=== PATIENT | female | born 1975 | race African-American/Black ===

== ENCOUNTER 2021-03-13 14:58 | Inpatient (IN) | payer MEDICAID, SELFPAY ==
[~2021-03-13] VITALS: Ht 167.6 cm; Wt 60.8 kg
[2021-03-13 15:02] VITALS: BP 104/65
--- NOTE | 2021-03-13 15:07 | NUR ---
45 y/o F BIBA for gen weakness x1 day and dehydration. Pt was in [place] for the same symptoms and has been walking for a few hours with a large heavy jacket on. Denies CP, Denies N/V/D. Has not rested since her D/C PmHx: Denies Allergies: Denies Denies home meds
[2021-03-13] MEDS ORDERED: NACL 0.9% 1,000 ML IV ONE (15:20)
--- NOTE | 2021-03-13 15:30 | NUR ---
Urine collected and processed per orders
--- NOTE | 2021-03-13 15:36 | NUR ---
Marvin Rojas at bedside performing EKG
[2021-03-13 15:39] LABS: BASOPHILS # (AUTO) 0.1 K/uL (0.00-0.22); HEMATOCRIT 23.2 % (36-48); WHITE BLOOD COUNT (AUTO) 7.3 K/uL (4.8-10.8)
[2021-03-13 15:44] LABS: APPEARANCE,URINE CLEAR (CLEAR); BILIRUBIN,URINE 2+ (NEGATIVE); BLOOD, URINE 3+ (NEGATIVE); COLOR,URINE YELLOW (YELLOW); LEUKOCYTE ESTERASE ,URINE NEGATIVE (NEGATIVE); NITRITE, URINE NEGATIVE (NEGATIVE); UGLUCOSE NEGATIVE (NEGATIVE)
[2021-03-13 15:51] LABS: BASOPHILS % (AUTO) 0.9 % (0.0-2.0); EOSINOPHILS % (AUTO) 0.4 % (0.0-4.0); LYMPHOCYTES # (AUTO) 1.4 K/uL (2.5-16.5); LYMPHOCYTES % (AUTO) 19.4 % (20.5-51.1); MEAN CORPUSCULAR HEMOGLOBIN 19 pg (27-31); MEAN CORPUSCULAR HGB CONC 30 g/dL (33-37); MEAN CORPUSCULAR VOLUME 62.4 fL (80-94); MONOCYTES % (AUTO) 14.2 % (1.7-9.3); NEUTROPHILS # (AUTO) 4.7 K/uL (1.8-7.7); NEUTROPHILS % (AUTO) 65.1 % (42.2-75.2); PLATELET COUNT (AUTO) 631 K/uL (140-450); RED BLOOD CELL COUNT(AUTO) 3.72 MIL/uL (4.20-5.40); RED CELL DISTRIBUTION WIDTH 19.3 % (11.6-13.7)
[2021-03-13 15:56] LABS: RBC,URINE 0-5 /HPF (0-5); WBC,URINE 0-5 /HPF (0-5)
[2021-03-13 16:00] LABS: ANION GAP 17.7 (8-16); CARBON DIOXIDE 23.2 mmol/L (21-32); CREATININE 0.8 mg/dL (0.6-1.3)
[2021-03-13 16:02] LABS: POTASSIUM 2.9 mmol/L (3.5-5.1)
[2021-03-13] MEDS ORDERED: POTASSIUM CHLORIDE 10 MEQ TABER PO ONE (16:05)
[2021-03-13] MEDS ORDERED: POTASSIUM CHLORIDE 20% 40 MEQ/15 ML UDC PO ONE (16:10)
--- NOTE | 2021-03-13 16:18 | NUR ---
Female Gate Keeper accompanied female patient for Rectal Exam. For ERMD
--- NOTE | 2021-03-13 16:19 | NUR ---
Radiology at bedside doing XRay
--- NOTE | 2021-03-13 17:05 | NUR ---
Per Dr. Felder, would like pt to be admitted to Tele Floor and given 1 Unit PRBC
[2021-03-13] MEDS ORDERED: POTASSIUM CHLORIDE 10 MEQ TABER PO PRN (17:35)
[2021-03-13] MEDS ORDERED: DEXT 5% /NACL 0.9% 1,000 ML IV SCH (17:35)
[2021-03-13] MEDS ORDERED: ZOLPIDEM 5 MG TAB PO PRN (17:35)
[2021-03-13] MEDS ORDERED: ACETAMINOPHEN 325 MG TAB PO PRN (17:35)
[2021-03-13] MEDS ORDERED: ONDANSETRON 4 MG/2 ML VIAL IM/IVP PRN (17:35)
[2021-03-13] MEDS ORDERED: guaiFENesin DM 200/20 MG-10 ML 10 ML UDC PO PRN (17:35)
[2021-03-13] MEDS ORDERED: HYDROcodone/APAP 7.5/325 MG 1 TAB PO PRN (17:35)
[2021-03-13] MEDS ORDERED: DOCUSATE SODIUM 100 MG GELCAP PO PRN (17:35)
[2021-03-13 17:37] LABS: BARBITURATE, URINE NEGATIVE ng/ml (NEG <=200); BENZODIAZEPINE, URINE NEGATIVE ng/mL (NEG <=200); CANNABINOID, URINE NEGATIVE ng/mL (NEG <=50); COCAINE, URINE NEGATIVE ng/mL (NEG <=300); OPIATE, URINE NEGATIVE ng/mL (NEG <=2000); PHENCYCLIDINE SCREEN,URINE NEGATIVE ng/mL (NEG <=25)
--- NOTE | 2021-03-13 17:52 | NUR ---
COVID TEST TAKEN AND GIVEN TO LEARNING TECHNOLOGIST
[2021-03-13 18:14] LABS: CHOL/HDL RATIO 3.4 (1-4.5); FREE T4 (FREE THYROXINE) 1.26 ng/dL (0.76-1.46); MAGNESIUM 1.7 mg/dL (1.8-2.4); PHOSPHORUS 3.5 mg/dL (2.5-4.9); THYROID STIMULATING HORMONE 1.29 uIU/mL (0.34-3.74)
[2021-03-13 18:41] LABS: PROTHROMBIN TIME 10.9 secs (10.8-13.4)
[2021-03-13] MEDS ORDERED: SODIUM FERRIC GLUCONATE 125 MG in NACL 0.9% 100 ML IV SCH (19:00)
--- NOTE | 2021-03-13 19:27 | NUR ---
REPORT RECEIVED FROM ABDIEL MORALES FOR CONTINUITY OF PATIENT CARE AT THIS TIME.
--- NOTE | 2021-03-13 19:29 | NUR ---
Pt report given to Aruna. Transfer of care at this time.
[2021-03-13] MEDS ORDERED: POTASSIUM CHLORIDE 40 MEQ, LIDOCAINE MPF 1% 25 MG in NACL 0.9% 250 ML IV SCH (20:00)
--- NOTE | 2021-03-13 20:00 | NUR ---
PATIENT SITTING IN BED LOCKED IN LOWEST POSITION W X1 SIDERAIL UP. PATIENT DENIES ANY PAIN, DENIES ANY MORE WEAKNESS. PATIENT DENIES ANY DIZZYNESS, NAUSEA OR OTHER SYMPTOMS. PATIENT AOX4 W VSS.
--- NOTE | 2021-03-13 20:05 | NUR ---
5%-0.9% IVF INFUSION PAUSED W 785 ML VTBI. TO INITIATE POTASSIUM CHLORIDE 40MEQ.
--- NOTE | 2021-03-13 20:15 | NUR ---
Pt report given to ABDIEL WINSLOW. Transfer of care at this time.
--- NOTE | 2021-03-13 20:25 | NUR ---
Patient will be admitted to care of . Admited to TELEMETRY. Will go to room 106-B. Belongings list completed. Report to ABDIEL WINSLOW.
--- NOTE | 2021-03-13 20:30 | NUR ---
RECEIVED REPORT FROM ER, PT UP TO ROOM VIA DORIS SHE IS AOX4 ON ROOM AIR, SKIN INTACT AND ABLE TO AMBULATE TO THE BED. PT REFUSED TO WEAR THE GOWN. SHE WAS PLACED ON TELEMONITORING SHE HAS A 18G IN RAC. V/S FOLLOWS: T 97.7 P 92 R 20 B/P 102/63. ALL UNIVERSAL FALLS PRECAUTIONS IN PLACE.
[2021-03-13 21:00] VITALS: BP 102/63
--- NOTE | 2021-03-13 21:00 | NUR ---
PT WAS FOUND GETTING HER BELONGINGS TOGETHER AND SHE ALSO PULLED OUT IV SITE. PT TOLE STAFF SHE WAS DISCHARGED. STAFF CORRECTED HER AND REMINDED HER SHE HAS BEEN ADMITTED HERE AND HAS 1 UNIT OF BLOOD ORDERED. PT VERBALIZED UNDERSTANDING.
--- NOTE | 2021-03-13 22:30 | NUR ---
RECEIVED CALL FROM LAB THAT UNIT OF PACKED RED BLOOD CELLS ARE READY. PRE TRANSFUSION V/S FOLLOWS: T 98 P 86 R 20 B/P 1006/1 02 98% ON ROOM AIR. NEW IV SITE PROVIDED TO PT ON RIGHT HAND 22 GUAGE. ALL ORDERED PRECAUTIONS IN PLACE.
--- NOTE | 2021-03-13 23:15 | NUR ---
BLOOD TRANSFUSION STARTED NO ADVERSE REACTION NOTED. V/S FOLLOWS: T 98 P 85 R 20 B/P 94/61 02 99% ON ROOM AIR.
[2021-03-14] VITALS: BP 98/67
--- NOTE | 2021-03-14 00:15 | NUR ---
TRANSFUSION IN PROGRESS; NO ADVERSE REACTION NOTED, V/S FOLLOWS: T 98.0 P 77 R 20 B/P 98/67 02 99% ON ROOM AIR. PT ASKED TO BE DISCONNECTED AND "TAKE A BREAK" PT INFORMED THAT THERE IS ONLY UP TO 4 HRS TO COMPLETED THE TRANSFUSION. PT WAS DISCONNECTED FROM VITAL SIGNS MACHINE AND REMINDED THAT SHE MAY USE THE BATHROOM BUT TO TAKE HER IV POLE ZAND THAT WE CANNOT STOP THE TRANSFUSION UNLESS SHE HAS AN ADVERSE EFFECT. PT VERBALIZED UNDERSTANDING.
--- NOTE | 2021-03-14 02:15 | NUR ---
PT WAS NOTED TO BE OFF TELEMETRY MONITORING. CHECKED AND PT, SHE HAD PULLED OUT IV SITE AND LEFT. MOST OF THE BAG OF BLOOD (ABOUT 95%) WAS COMPLETED NO ADVERSE REACTION NOTED. SPOKE WITH FRONT LOB[facility] AND SECURITY TO ASK ABOUT IF THEY COULD FIND HER OR IF SHE WAS ON FILM LEAVING. PT WAS SEEN ON FILM LEAVING BUILDING ABOUT 0210. PT TOOK TELEL BOX WITH HER AND LEFT SOME BELONGINGS IN THE CLOSET.
--- NOTE | 2021-03-14 03:40 | NUR ---
CARIE BONILLA CALLED TO UNIT TO SAY THAT PT WALKED BACK IN THE BUILDING. PT WAS ESCORTED BACK , SHE HAD TELE BOX WITH HER. PT SEEM ALERT AND AWARE AND WALKED WITH NURSING STAFF BACK UP TO UNIT TO ROOM 106 BED A. WILL PROVIDE ANOTHER IV SITE LATER. IF PATENT DECIDES TO STAY.
[2021-03-14 04:00] VITALS: BP 123/88
--- NOTE | 2021-03-14 05:14 | NUR ---
PT WALKING AROUND ROOM GETTING THINGS TOGETHER, PT REQUESTED AMA FORM, LAS V/S FOLLOWS: T 97.8 P 93 B/P 123/88 02 100% ON ROOM AIR. ARM BANDS CUT OFF. PT IS STABLE AND REQUESTS TO LEAVE, ATTEMPTED TO EXPLAIN THAT SHE WILL NOT GET TO SEE A DOCTOR OR FIND OUT HER REPEAT LABS, PT OK WITH IT AND JUST WANTS TO GO HOME, PT SIGNED FORM AND LEFT WITH BELONGINGS IN HAND.
--- NOTE | 2021-03-14 06:15 | NUR ---
MESSAGE LEFT FOR MD RO TO CALL BACK TO INFORM HIM REGARDING PT LEFT AMA.
[2021-03-14] MEDS ORDERED: PANTOPRAZOLE 40 MG TABEC PO SCH (09:00)
[2021-03-14 09:06] LABS: T4 (THYROXINE) 7.3 ug/dL (4.5-12.0)
[2021-03-15 06:07] LABS: FOLIC ACID 10.7 ng/mL (>3.0)
== END 2021-03-14 05:12 | disposition left against medical advice (07) | DRG 663 ==
LOC: MED 14:58 → MTU 17:12
PROVIDERS: ADMIT Family Medicine; ATTEND Family Medicine
PROC: 30233N1 Transfusion of Nonautologous Red Blood Cells into Peripheral Vein, Percutaneous Approach (ICD-10-PCS; principal; 2021-03-13)
DX: D64.9 Anemia, unspecified (principal); E86.0 Dehydration; E87.6 Hypokalemia; Z53.29 Procedure and treatment not carried out because of patient's decision for other reasons; Z20.822 Contact with and (suspected) exposure to COVID-19
CPT/HCPCS: 36415; 71045; 80048; 80305; 81001; 81025; 82150; 82607; 82728; 82746; 83036; 83540; 83690; 83735; 83880; 84100; 84436; 84439; 84443; 84479; 84484; 85025; 85045; 85610; 85730; 86886; 86900; 86901; 86920; 87081; 93005; 96361; 96365; 96375; 99285; J2001; J2916; J3480; J7030; P9016; Q0092